=== PATIENT | female | born 1970 | race Caucasian/White ===

== ENCOUNTER 2019-01-10 11:28 | Inpatient (IN) | payer MEDICAID ==
[~2019-01-10] VITALS: Ht 147.3 cm; Wt 58.5 kg
[2019-01-10 12:31] VITALS: BP 189/92
[2019-01-10] MEDS ORDERED: ZOLPIDEM TARTRATE 10 MG TABLET PO PRN (12:45)
[2019-01-10] MEDS ORDERED: HALOPERIDOL 5 MG TABLET PO PRN (12:45)
[2019-01-10] MEDS ORDERED: LORazepam 1 MG TABLET PO PRN (12:45)
[2019-01-10] MEDS ORDERED: PNEUMOCOCCAL VACCINE POLYVALENT 0.5 ML VIAL [PPSV23] IM ONE (13:00)
[2019-01-10] MEDS ORDERED: INFLUENZA VIRUS VACCINE QVS 2019-20 (3YR+)/PF 60 MCG/0.5 ML SYRINGE IM ONE (13:00)
[2019-01-10 13:42] VITALS: BP 185/93
[2019-01-10] MEDS: HYDROCHLOROTHIAZIDE 25 MG TABLET PO SCH (15:21)
[2019-01-10] MEDS: LISINOPRIL 20 MG TABLET PO SCH ×2 (15:21→17:27)
[2019-01-10 17:18] VITALS: BP 189/96
[2019-01-10] MEDS: IBUPROFEN 600 MG TABLET PO PRN (17:27)
[2019-01-10 18:27] VITALS: BP 137/78
[2019-01-11] MEDS: IBUPROFEN 600 MG TABLET PO PRN (06:45)
[2019-01-11 06:55] VITALS: BP 159/77
[2019-01-11 08:21] LABS: BASOPHILS % (AUTO) 1.5 % (0.0-2.0); EOSINOPHILS % (AUTO) 12.8 % (1.0-6.0); HEMOGLOBIN 13.3 g/dL (12.0-16.0); LYMPHOCYTES # (AUTO) 1.8 K/uL (1.0-4.8); MEAN CORPUSCULAR HEMOGLOBIN 29.3 pg (26.0-34.0); MEAN CORPUSCULAR HGB CONC 32.3 G/dL (31.0-37.0); MEAN CORPUSCULAR VOLUME 91 fL (80-100); MONOCYTES # (AUTO) 0.4 K/uL (0.1-1.0); MONOCYTES % (AUTO) 6.4 % (2.0-9.0); NEUTROPHILS # (AUTO) 2.8 K/uL (1.8-7.7); NEUTROPHILS % (AUTO) 48.3 % (40.0-70.0); PLATELET COUNT (AUTO) 260 K/uL (150-450); RED BLOOD CELL COUNT(AUTO) 4.53 MIL/uL (4.00-5.20); RED CELL DISTRIBUTION WIDTH 13.4 % (11.5-14.5)
[2019-01-11 08:42] LABS: HEMOGLOBIN A1C 6.4 % (4.5-6.2)
[2019-01-11 08:52] LABS: ALANINE AMINOTRANSFERASE 58 U/L (12-78); ALBUMIN 3.8 g/dL (3.4-5.0); ALKALINE PHOSPHATASE 150 U/L (46-116); ANION GAP 4 mmol/L (8-16); ASPARTATE AMINOTRANSFERASE 36 U/L (15-37); BILIRUBIN,TOTAL 0.5 mg/dL (0.1-1.0); CALCIUM, TOTAL 9.8 mg/dL (8.8-10.5); CARBON DIOXIDE 32 mmol/L (22-29); CHLORIDE 100 mmol/L (98-107); CHOL/HDL RATIO 3.3 (3.9-5.7); CHOLESTEROL 296 mg/dL (131-200); CREATININE 0.75 mg/dL (0.60-1.30); GLOMERULAR FILTR. RATE CALC > 60 mL/min (>60); GLUCOSE,RANDOM 154 mg/dL (70-110); HCG,QUANTITATIVE 5 mIU/mL (0-6); HDL CHOLESTEROL 90 mg/dL (40-60); LDL CHOL (CALC.) 194 mg/dL (0-130); POTASSIUM 3.6 mmol/L (3.5-5.1); SODIUM SERUM 136 mmol/L (136-145); TOTAL PROTEIN, SERUM 8.6 g/dL (6.4-8.2); TRIGLYCERIDES 59 mg/dL (15-150); UREA NITROGEN, BLOOD 12 mg/dL (7-18)
[2019-01-11] MEDS: LISINOPRIL 20 MG TABLET PO SCH ×2 (08:55→17:48)
[2019-01-11] MEDS: HYDROCHLOROTHIAZIDE 25 MG TABLET PO SCH (08:59)
[2019-01-11 09:00] VITALS: BP 156/79
[2019-01-11] MEDS ORDERED: ATORVASTATIN CALCIUM 40 MG TABLET PO SCH (09:15)
[2019-01-11 09:16] LABS: AMPHET/METH SCREEN,URINE NEGATIVE (NEGATIVE); BARBITURATE SCREEN, URINE NEGATIVE (NEGATIVE); BENZODIAZEPINES SCREEN,URINE NEGATIVE (NEGATIVE); CANNABINOID SCREEN,URINE NEGATIVE (NEGATIVE); COCAINE SCREEN,URINE NEGATIVE (NEGATIVE); METHADONE SCREEN, URINE NEGATIVE (NEGATIVE); OPIATE SCREEN,URINE NEGATIVE (NEGATIVE)
[2019-01-11 09:24] LABS: APPEARANCE,URINE CLEAR (CLEAR); BILIRUBIN,URINE NEGATIVE (NEGATIVE); GLUCOSE, URINE (UA) NEGATIVE (NEGATIVE); KETONES,URINE NEGATIVE (NEGATIVE); LEUKOCYTE ESTERASE ,URINE NEGATIVE (NEGATIVE); NITRATE,URINE NEGATIVE (NEGATIVE); OCCULT BLOOD,URINE NEGATIVE (NEGATIVE); PROTEIN,URINE NEGATIVE (NEGATIVE); UROBILINOGEN,URINE 0.2 mg/dL (<=1.0)
[2019-01-11 09:28] LABS: PHENCYCLIDINE SCREEN,URINE NEGATIVE (NEGATIVE)
[2019-01-11] MEDS ORDERED: FLUoxetine HCL 20 MG CAPSULE PO ONE (11:00)
[2019-01-11 16:28] VITALS: BP 138/79
[2019-01-11] MEDS: SIMVASTATIN 20 MG TABLET PO SCH (20:34)
[2019-01-11] MEDS: OLANZapine 5 MG TABLET PO SCH (21:00)
[2019-01-12 07:08] VITALS: BP 160/87
[2019-01-12] MEDS: LISINOPRIL 20 MG TABLET PO SCH ×2 (08:28→16:01)
[2019-01-12] MEDS: HYDROCHLOROTHIAZIDE 25 MG TABLET PO SCH (08:28)
[2019-01-12] MEDS: OLANZapine 5 MG TABLET PO SCH ×2 (08:36→20:44)
[2019-01-12 08:45] VITALS: BP 140/78
[2019-01-12] MEDS ORDERED: FLUoxetine HCL 20 MG CAPSULE PO SCH (09:00)
[2019-01-12 16:09] VITALS: BP 145/79
[2019-01-12] MEDS ORDERED: SIMV-261 PO (16:51)
[2019-01-12] MEDS ORDERED: SERT100T12 PO (16:51)
[2019-01-12] MEDS ORDERED: HYDR25TA PO (16:51)
[2019-01-12] MEDS ORDERED: FLUO-191 PO (16:51)
[2019-01-12] MEDS ORDERED: LISI-662 PO (16:51)
[2019-01-12] MEDS: SIMVASTATIN 20 MG TABLET PO SCH (20:44)
[2019-01-13] MEDS ORDERED: SERTRALINE HCL 100 MG TABLET PO SCH (09:00)
== END 2019-01-12 19:50 | disposition home or self-care (01) | DRG 750 ==
LOC: B3A 13:38
PROVIDERS: ADMIT Psychiatry & Neurology Child & Adolescent Psychiatry; ATTEND Psychiatry & Neurology Child & Adolescent Psychiatry
DX: F25.9 Schizoaffective disorder, unspecified (principal); E11.9 Type 2 diabetes mellitus without complications; E78.5 Hyperlipidemia, unspecified; I10 Essential (primary) hypertension; F41.9 Anxiety disorder, unspecified; M54.9 Dorsalgia, unspecified; Z59.0 Homelessness; Z79.899 Other long term (current) drug therapy
CPT/HCPCS: 80307; 83036; 90686; 90732